=== PATIENT | female | born 1995 | race Caucasian/White ===

== ENCOUNTER 2017-12-29 19:38 | Emergency (ER) | payer OTHER, BC ==
[~2017-12-29] VITALS: Ht 165.1 cm; Wt 66.2 kg
[~2017-12-29 19:38] MED LIST: MINO45TA PO
[2017-12-29 19:41] VITALS: BP 123/81
== END 2017-12-29 21:17 | disposition home or self-care (01) ==
LOC: ED 21:10
DX: S16.1XXA Strain of muscle, fascia and tendon at neck level, initial encounter (principal); V49.49XA Driver injured in collision with other motor vehicles in traffic accident, initial encounter; Y93.89 Activity, other specified; Y99.8 Other external cause status; Y92.410 Unspecified street and highway as the place of occurrence of the external cause
CPT/HCPCS: 72020; 72050; 72072; 99284